=== PATIENT | female | born 1965 | race Caucasian/White ===

== ENCOUNTER 2017-05-06 00:12 | Emergency (ER) | payer BC ==
[2017-05-06] MEDS ORDERED: HYDROMORPHONE HCL 1 MG/ML SYRINGE IVP ONE ×2 (00:43→01:40)
[2017-05-06] MEDS ORDERED: ONDANSETRON HCL IV 4 MG/2 ML VIAL IVP ONE (00:44)
--- NOTE | 2017-05-06 01:16 | Emergency Department Record ---
History of Present Illness - General Chief Complaint: Headache Migraine Stated Complaint: ADLER Time Seen by Provider: 05/06/17 00:18 Source: Patient Mode of Arrival: Ambulatory Limitations: No limitations - History of Present Illness Initial Comments: pt had eyesurgery 2 wks ago on her retina. a bubble was placed. pt started to get a headache yesterday and went to [facility]. she had a ct and labs and was started on motrin. the headache has grown worse and is on the left MD Complaint: Headache Onset/Timin -: Hour(s) Onset Description: Gradual Location: Frontal, Left, Retro-orbital Severity scale (1-10): 10 Quality: Sharp, Other Consistency: Constant Improves With: Nothing Worsens With: None Context: Other Other Symptoms: Eye pain/redness Treatments Prior to Arrival: Acetaminophen, Other - Related Data Home Medications Medication Instructions Recorded Confirmed Last Taken Acetazolamide [Acetazolamide] 250 mg PO QID PRN 05/06/17 05/06/17 05/05/17 Brimonidine Tartrate/Timolol 5 ml OP BID 05/06/17 05/06/17 Unknown [Combigan 0.2%-0.5% Eye Drops] Prednisolone Acetate 1% Opth [Pred 1 drop OPTH QID 05/06/17 05/06/17 Unknown Forte] Allergies Allergy/AdvReac Type Severity Reaction Status Date / Time Sulfa (Sulfonamide Allergy RASH Verified 05/06/17 00:22 Antibiotics) Travel Screening - Travel/Exposure Within Last 30 Days Have you traveled within the last 30 days?: No - Travel Symptoms Symptom Screening: None Review of Systems Reviewed: No additional complaints except as noted below Constitutional: Reports: As per HPI. Denies: Chills, Fever, Malaise, Night sweats, Weakness, Weight change Eyes: Reports: As per HPI. Denies: Eye discharge, Eye pain, Photophobia, Vision change ENT: Reports: As per HPI. Denies: Congestion, Dental pain, Ear pain, Epistaxis , Hearing loss, Throat pain Respiratory: Reports: As per HPI. Denies: Cough, Dyspnea, Hemoptysis, Stridor, Wheezes Cardiovascular: Reports: As per HPI. Denies: Arrhythmia, Chest pain, Dyspnea on exertion, Edema, Murmurs, Orthopnea, Palpitations, Paroxysmal nocturnal dyspnea, Rheumatic Fever, Syncope Endocrine: Reports: As per HPI. Denies: Fatigue, Heat or cold intolerance, Polydipsia, Polyuria Gastrointestinal: Reports: As per HPI. Denies: Abdominal pain, Constipation, Diarrhea, Hematemesis, Hematochezia, Melena, Nausea, Vomiting Genitourinary: Reports: As per HPI. Denies: Abnormal menses, Discharge, Dyspareunia, Dysuria, Frequency, Hematuria, Incontinence, Retention, Urgency Musculoskeletal: Reports: As per HPI. Denies: Arthralgia, Back pain, Gout, Joint swelling, Myalgia, Neck pain Skin: Reports: As per HPI. Denies: Bruising, Change in color, Change in hair/ nails, Lesions, Pruritus, Rash Neurological: Reports: As per HPI. Denies: Abnormal gait, Confusion, Headache, Numbness, Paresthesias, Seizure, Tingling, Tremors, Vertigo, Weakness Psychiatric: Reports: As per HPI. Denies: Anxiety, Auditory hallucinations, Depression, Homicidal thoughts, Suicidal thoughts, Visual hallucinations Hematological/Lymphatic: Reports: As per HPI. Denies: Anemia, Blood Clots, Easy bleeding, Easy bruising, Swollen glands Past Medical History - SOCIAL HISTORY Smoking Status: Former smoker - RESPIRATORY Hx Respiratory Disorders: No - CARDIOVASCULAR Hx Cardio Disorders: No - NEURO Hx Neuro Disorders: No - GI Hx GI Disorders: No - Hx Genitourinary Disorders: No - ENDOCRINE Hx Endocrine Disorders: No - MUSCULOSKELETAL Hx Musculoskeletal Disorders: No - PSYCH Hx Psych Problems: No - HEMATOLOGY/ONCOLOGY Hx Hematology/Oncology Disorders: No Family Medical History Any Significant Family History?: Yes Hx Dementia: Father Hx Heart Disease: Mother Physical Exam - General General Appearance: Alert, Oriented x3, Cooperative, Moderate distress - Head Head exam: Normal inspection - Eye Eye exam: EOMI, Periorbital swelling, Other (pupiols unequal. l pupil is dilated and unreactive. globe is bulging. globe is firm. cornea cloudy) Pupils: Normal accommodation - ENT ENT exam: Normal exam, Mucous membranes moist, Normal external ear exam, Normal orophraynx Ear exam: Normal external inspection. negative: External canal tenderness Nasal Exam: Normal inspection. negative: Discharge, Sinus tenderness Mouth exam: Normal external inspection, Tongue normal Teeth exam: Normal inspection. negative: Dental caries Throat exam: Normal inspection. negative: Tonsillar erythema, Tonsillar exudate - Neck Neck exam: Normal inspection, Full ROM. negative: Tenderness - Respiratory Respiratory exam: Normal lung sounds bilaterally. negative: Respiratory distress - Cardiovascular Cardiovascular Exam: Regular rate, Normal rhythm, Normal heart sounds - GI/Abdominal GI/Abdominal exam: Soft, Normal bowel sounds. negative: Tenderness - Rectal Rectal exam: Deferred - exam: Deferred - Extremities Extremities exam: Normal inspection, Full ROM, Normal capillary refill. negative: Tenderness - Back Back exam: Reports: Normal inspection, Full ROM. Denies: Muscle spasm, Rash noted, Tenderness - Neurological Neurological exam: Alert, CN II-XII intact, Normal gait, Oriented X3 - Psychiatric Psychiatric exam: Normal affect, Normal mood - Skin Skin exam: Dry, Intact, Normal color, Warm Course Vital Signs 05/06/17 00:23 Temperature 98.1 F Pulse Rate 49 L Respiratory 16 Rate Blood Pressure 117/70 Pulse Ox 97 - Reevaluation(s) Reevaluation #1: 05/06/17 02:24 pt d/w dr adam who requested pt be sent to [facility] or [facility]. attempted to send pt to [facility] and doc was unable after several calls to get a hold of any ophthamolgist. 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, left eye Retinal detachment, recent, total or subtotal Qualifiers: Laterality: left Qualified Code(s): H33.052 - Total retinal detachment, left eye Disposition: Acute Care Hospital Transfer Transfer To: [facility] Reason For Transfer: needs retinal specialist Accepting Physician: dr brewer Time Discussed w/Accepting Physician: 02:33 Forms: Patient Portal Access Quality - Quality Measures Quality Measures: N/A - Blood Pressure Screening Does Patient Have Any of the Following: No Blood Pressure Classification: Normal BP Reading Systolic Measurement: 117 Diastolic Measurement: 70 Screening for High Blood Pressure: < Normal BP, F/U Not Required > [G8783]
--- NOTE | 2017-05-06 08:53 | CT SCAN REPORT ---
EXAM: CT SCAN HEAD WO CONTRAST HISTORY: HEADACHE FOR THE PAST TWO DAYS. TECHNIQUE: Standard CT imaging of the brain was performed without contrast. COMPARISON: None. FINDINGS: The ventricles and subarachnoid spaces are normal. The brain parenchyma is unremarkable. There is no intra-axial mass, mass effect, hemorrhage, visible acute infarct, or abnormal extra-axial fluid. The pituitary gland appears mildly prominent. The suprasellar cistern appears normal. The skull is intact. Postsurgical changes are present within the left orbit. The sinuses and mastoids are clear. IMPRESSION: 1. NO ACUTE INTRACRANIAL ABNORMALITY. 2. MILDLY PROMINENT PITUITARY GLAND. 3. POSTSURGICAL CHANGES WITHIN THE LEFT ORBIT. JOB NUMBER: [id number] MTDD
== END 2017-05-06 02:40 | disposition short-term general hospital (02) ==
LOC: ER 00:12
DX: H33.052 Total retinal detachment, left eye (principal); H40.052 Ocular hypertension, left eye; R51 Headache; Z98.890 Other specified postprocedural states
CPT/HCPCS: 99285 ×2; 96376; 96374; 96375; 70450; J2405; J1170